=== PATIENT | male | born 1985 | race American Indian/Alaskan Native ===

== ENCOUNTER 2022-06-30 16:40 | Emergency (ER) | payer OTHER ==
[2022-06-30 18:37] VITALS: BP 151/99
== END 2022-07-01 23:17 | disposition left against medical advice (07) ==
LOC: ED 16:40
DX: M54.2 Cervicalgia (principal); M79.641 Pain in right hand; R42 Dizziness and giddiness; Z53.21 Procedure and treatment not carried out due to patient leaving prior to being seen by health care provider; V87.7XXA Person injured in collision between other specified motor vehicles (traffic), initial encounter; Y93.89 Activity, other specified; Y92.488 Other paved roadways as the place of occurrence of the external cause; Y99.8 Other external cause status

== ENCOUNTER 2022-07-01 16:50 | Emergency (ER) | payer SELFPAY | END 2022-07-02 02:00 | disposition left against medical advice (07) | LOC: ED 16:50 | DX: R52 Pain, unspecified (principal); Z53.21 Procedure and treatment not carried out due to patient leaving prior to being seen by health care provider ==